=== PATIENT | male | born 1955 | race Hispanic/Latino ===

== ENCOUNTER 2021-04-03 16:09 | Emergency (ER) | payer OTHER ==
[~2021-04-03] VITALS: Ht 172.7 cm; Wt 108.9 kg
[2021-04-03 16:12] VITALS: BP 133/78
== END 2021-04-03 18:45 | disposition left against medical advice (07) ==
LOC: EDH 16:09
DX: L50.9 Urticaria, unspecified (principal); Z53.21 Procedure and treatment not carried out due to patient leaving prior to being seen by health care provider